=== PATIENT | male | born 1950 | race Caucasian/White ===

== ENCOUNTER 2019-07-03 06:56 | Observation (INO) | payer BC, OTHER ==
[2019-07-03] VITALS (13 sets, daily range): BP systolic 121–139; BP diastolic 66–76
[~2019-07-03] VITALS: Ht 172.7 cm; Wt 94.0 kg
[~2019-07-03 06:56] MED LIST: ADULT LOW DOSE81 MG PO; BENICAR HCT 401 EAC1 PO; BYSTOLIC10 MG PO; BYSTOLIC20 MG PO; CO Q-10100 MG PO; FENOFIBRATE160 MG PO; FISH OIL 1,0001 EAC5 PO; GLUCOPHAGE1000 MG PO; GLUCOSAMINE &1 EAC1 PO; HYDROCHLOROTHIA25 M1; LISINOPRIL40 MG PO; MULTIVITAMINS PO; NORVASC10 MG PO; PLAVIX 75 MG TA75 M1 PO; TOPROL XL50 MG PO; TRIBENZOR 40-11 EAC1 PO; VITAMIN D31000 UNI2 PO; VYTORIN 10-201 EACH PO
[2019-07-03 07:31] LABS: HEMATOCRIT 43.8 % (42.0-52.0); HEMOGLOBIN 15.1 gm/dL (14.0-18.0); MCH 30.4 pg (26.0-34.0); MCHC 34.5 g/dL (28.0-37.0); RBC 4.98 mil/uL (4.50-6.00); RDW 13.7 % (10.5-14.5); WBC 7.9 thou/uL (4.0-11.0)
[2019-07-03 07:44] LABS: CALCIUM 10.1 mg/dL (8.5-10.1); CREATININE 1.2 mg/dL (0.7-1.3)
[2019-07-03] MEDS ORDERED: EDARBI80 MG PO (08:01)
[2019-07-03] MEDS ORDERED: CHLORTHALIDONE25 MG PO (08:01)
[2019-07-03] MEDS ORDERED: JANUVIA100 MG PO (08:02)
[2019-07-03 08:07] LABS: PROTIME 10.9 Seconds (9.3-11.4)
--- NOTE | 2019-07-03 08:25 | EKG ---
[address] [address] [place] [address] ELECTROCARDIOGRAM REPORT Name: DAJA ADRIAN [id number] Admission: 07/03/19 Attend Phys: Guillermo Oneil MD, Discharge: Date of : 48 Report #: [id number] THIS REPORT FOR: //name// [facility] Test Date: 2019-07-03 Test Time: 07:33:37 Pat Name: DAJA ADRIAN Department: Room: Gender: Apartment Maintenance: James OLIVEIRA : 1950 Requested By: Guillermo Oneil Order Number: [id number] MD: Vishal Howard Measurements Intervals [place] Rate: 62 P: -12 MI: 152 QRS: 44 QRSD: 151 T: 20 QT: 396 QTc: 402 Interpretive Statements Sinus rhythm Right bundle branch block Compared to ECG 01/06/2000 06:35:12 Ventricular premature complex(es) no longer present ST (T wave) deviation no longer present Electronically Signed On 07-03-2019 8:24:41 CDT by Vishal Howard [email or web address] <ELECTRONICALLY SIGNED> By: Vishal Howard MD, [facility] 07/03/19 0824 0733 Vishal Howard MD, [facility] /EPI
--- NOTE | 2019-07-03 13:58 | NUR ---
1330-NI,RT PULLED LEFT GROIN SHEATH, PRESSURE MAINTAINED FOR 25 MINUTES. SOME OOZING AFTER 15 MINUTES. NO COMPLAINTS FROM PT, VSS THROUGHOUT HOLD. DRESSING PLACED OVER LEFT GROIN. POST SHEATH PULL INSTRUCTIONS REVIEWED WITH PT AND ALL QUESTIONS ANSWERED. URINAL GIVEN TO PT TO TRY AND URINATE.
--- NOTE | 2019-07-03 19:39 | NUR ---
ASSUMED CARE AT 1400, SHIFT ASSESSMENT AND ADMISISON DONE, POST CATH INTEVENTION ADDED AND VS DOCUMNETED PER INTERVENTION. CATH SITE IS CLEAN DRY INTACT, NO SIGNS OF HEMATOMA, SOFT TO PALPATE. BEDREST UNTIL 1999 HEMOSTASIS WAS OBTAINED AT 1400. WILL CONTINUE TO ASESS AND ASSIST WITH ADLs NEEDED.
[2019-07-04] VITALS: BP 149/82
[2019-07-04 04:19] VITALS: BP 144/61
[2019-07-04 05:16] LABS: HEMATOCRIT 44.6 % (42.0-52.0); HEMOGLOBIN 15.2 gm/dL (14.0-18.0); MCHC 34.1 g/dL (28.0-37.0); MCV 87.9 fL (80.0-100.0); RBC 5.08 mil/uL (4.50-6.00); RDW 13.6 % (10.5-14.5); WBC 11.3 thou/uL (4.0-11.0)
--- NOTE | 2019-07-04 05:21 | NUR ---
PATIENT CARES WAS ASSUMED AT 0330. PATIENT WAS SOUND A SLEEP . HOURLY ROUNDIN CONTINUED WILL PASS TO DAY SHIFT. PATIENT IS STABLE. HOURLY ROUNDING WAS DONE. PATIENTSLEEP MOST OF THIS SHIFT. THE BED IS IN A LOW AND LOCKED POSITION.
[2019-07-04 05:50] LABS: ANION GAP 10 mmol/L (7-16); BUN 14 mg/dL (7-18); CALCIUM 9.4 mg/dL (8.5-10.1); CHLORIDE 97 mmol/L (98-107); CO2 31 mmol/L (21-32); GLUCOSE 136 mg/dL (74-106); SGOT 23 U/L (15-37); SGPT 34 U/L (30-65); SODIUM 138 mmol/L (136-145); TOTAL BILIRUBIN 0.7 mg/dL (<0.1-1.0); TOTAL PROTEIN 7.7 g/dL (6.4-8.2); TROPONIN-I <0.06 ng/mL (<0.06)
[2019-07-04 07:15] VITALS: BP 143/72
[2019-07-04] MEDS ORDERED: GLUCOPHAGE1000 MG PO (07:40)
[2019-07-04] MEDS ORDERED: ASA5UEC PO (07:40)
[2019-07-04] MEDS ORDERED: LIPITOR40 MG PO (07:43)
[2019-07-04] MEDS ORDERED: CRESTOR20 MG PO (07:56)
[2019-07-04] MEDS ORDERED: ZETIA10 MG PO (07:56)
[2019-07-04 08:25] VITALS: BP 144/61
--- NOTE | 2019-07-04 08:40 | EKG ---
[address] [address] [facility] [email or web address] [address] ELECTROCARDIOGRAM REPORT Name: DAJA ADRIAN Room #: 218-[facility] M.R.#: [id number] Admission: 07/03/19 Attend Phys: Guillermo Oneil MD, Discharge: Date of : 48 Report #: [id number] THIS REPORT FOR: //name// [facility] Test Date: 2019-07-04 Test Time: 07:35:55 Pat Name: DAJA ADRIAN Department: Room: 218 Gender: M Insurance Clerk: HAILEY : 1950 Requested By: Guillermo Oneil Order Number: [id number] MD: Vishal Howard Measurements Intervals [place] Rate: 63 P: 51 RI: 181 QRS: 45 QRSD: 153 T: 19 QT: 406 QTc: 416 Interpretive Statements Sinus rhythm Right bundle branch block Compared to ECG 07/03/2019 07:33:37 No significant changes Electronically Signed On 07-04-2019 8:39:50 CDT by Vishal Howrad [email or web address] <ELECTRONICALLY SIGNED> By: Vishal Howard MD, [facility] 07/04/19 0839 4 Vishal Howard MD, [facility] /EPI
--- NOTE | 2019-07-04 10:41 | NUR ---
PT PIV DISCONTINUED, GROIN DRESSING REMOVED, SITE PULSATILE, SOFT, NO BLEEDING. TELEMETRY REMOVED. PT DISCHARGED VIA WC ACCOMPANIED BY FAMILY
--- NOTE | 2019-07-06 18:46 | CATHLAB ---
[facility] [address] [place] [address] INVASIVE PROCEDURE REPORT Name: DAJA ADRIAN Room #: 218-P [facility] IN ..#: [id number] Admission: 07/03/19 Attend Phys: Guillermo Oneil, Discharge: 07/04/19 Date of : 48 Date of Service: 07/06/19 1846 Report #: [id number] THIS REPORT FOR: //name// APPROVED REPORT Study performed: 07/03/2019 10:07:42 Patient Details Patient Status: Out-Patient Room #: The patient is a 68 year-old male Event Personnel Guillermo Oneil Cotton Ball Bagger, Tin Riley Interventional Radiologist, Tova Laird RN, Charo Snowden Monitor, Oh Doran RTR Scrub, George Miranda RTR Scrub, Kathryn Trejo RTR Monitor, Steven Gamboa RN hair spring cutter Performed Art Access - L femoral artery* 42733 Initial Mod Sed Same Phys/QHP Gr5y 711438 50735 Mod Sed Same Phys/QHP Ea 101239 Left Heart Cath Coronaries, Bypass Grafts 0323995 LHCCORCABG GALO Revasc Graft Single PDA C9604 SVGREVSING Hemostasis with Manual pressure Indication Chest pain Procedure Narrative The patient was brought electively to the Cardiac Catheterization Laboratory and was prepped and draped in a sterile manner. The Left Groin^ was infiltrated with 1% Lidocaine subcutaneous anesthesia. A PINNACLE 6FR Sheath #[id number] sheath was inserted into the LFA^. Coronary angiography was performed using coronary diagnostic catheters. The right coronary system was accessed and visualized with a JL 4 catheter. The left coronary system was accessed and visualized with a JR 4 catheter. The left ventricle was accessed and visualized with a Pigtail catheter. Left ventriculogram was performed in MENON projection. Hemostasis was obtained with manual pressure following sheath removal without any complications. The patient tolerated the procedure well and there were no complications associated with the procedure. Intraoperative Conscious Sedation Sedation start time: 10:00 Case end Time: 12:[address] [address] INVASIVE PROCEDURE REPORT Name: DAJA ADRIAN Room #: 218-P [facility]#: [id number] Admission: 07/03/19 Attend Phys: Guillermo Oneil, Discharge: 07/04/19 Date of : 48 Date of Service: 07/06/19 1846 Report #: [id number] Fentanyl 300 mcg Versed 6.0 mg Fluoro Time: 8.42 minutes Dose: DAP 88422.00 cGycm2 1518 mGy Contrast Type and Amount: Omnipaque 150 ml Hemodynamics The aortic pressure is 153/68 mmHg with a mean of 98 mmHg. The left ventricular pressure is 151/13 mmHg with a mean of mmHg. The left ventricular end diastolic pressure is 25 mmHg. PCI Technique Lesion Percutaneous coronary intervention was performed on the Prox Anastamosis. A LAUNCHER 6FR RCB #[id number] Guide Catheter was used to engage the ostium. BALLOON DILATION A Balloon catheter Sprinter OTW 2.5 x 12 #[id number] was inserted and inflated up to 10.00atm for 26seconds. Additional Inflation: 12.00atm for 21seconds. STENT DEPLOYMENT A drug-eluting stent XIENCE RIGOBERTO RX 2.5 X 12 #[id number] was inserted and inflated up to 14.00atm for 27seconds. Additional Inflation: 18.00atm for 30seconds. PCI Technique Lesion 2 Percutaneous Coronary Intervention was performed on the Popliteal. Conclusion #1 successful PTCA stent of the SVG to PDA anastomosis 90% lesion to 0% with a 2.5 x 12 Rigoberto drug-eluting stent postdilated 2.75 mm in size RAINE-3 grade 3 flow #2 the eklutna right coronary is occluded #3 left main moderately disease giving rise to an occluded LAD circumflex severely diseased competitively filling OM branch via vein graft #4 MITCHELL to LAD is intact brisk flow into the LAD anastomosis approximate mid vessel with retrograde filling of diagonal #5 SVG or radial graft to OM branch remains widely patent mild ostial disease is noted #6 normal left ventricular size and systolic function EF 55% Regulations plan: Continue aggressive risk factor modification will [facility] [address] [place] [address] INVASIVE PROCEDURE REPORT Name: DAJA ADRIAN Room #: 218-P [facility] M.R.#: [id number] Admission: 07/03/19 Attend Phys: Guillermo Oneil, Discharge: 07/04/19 Date of : 48 Date of Service: [id number] Report #: [id number] need dual antiplatelet therapy for coronary and peripheral intervention. See Dr. Riley's dictation. Patient transfer CCU in stable condition. <ELECTRONICALLY SIGNED> By: Guillermo Oneil MD, FACC 07/06/191845 45 45 Guillermo Oneil MD, FACC /INF
== END 2019-07-04 10:29 | disposition home or self-care (01) ==
LOC: CATH 06:56 → 2N 14:31
PROVIDERS: Nurse Practitioner Adult Health; ADMIT Internal Medicine Cardiovascular Disease
DX: I25.10 Atherosclerotic heart disease of native coronary artery without angina pectoris (principal); I73.9 Peripheral vascular disease, unspecified; I10 Essential (primary) hypertension; E11.9 Type 2 diabetes mellitus without complications; I65.29 Occlusion and stenosis of unspecified carotid artery; Z79.899 Other long term (current) drug therapy; Z79.82 Long term (current) use of aspirin

== ENCOUNTER → 2019-10-27 | Outpatient (CLI) | payer BC, OTHER ==
[~2019-10-27] VITALS: Ht 172.7 cm; Wt 93.0 kg
[2019-10-27] VITALS (10 sets, daily range): BP systolic 144–163; BP diastolic 67–79
[~2019-10-27] MED LIST changes: +AMBIEN 10 MG TA10 MG PO; +ASA5UEC PO; +CHLORTHALIDONE25 MG PO; +CRESTOR20 MG PO; +D3 DOTS2000 UNIT PO; +EDARBI80 MG PO; +FLOMAX0.4 MG PO; +GLUCOSAMINE H1500 MG PO; +JANUVIA100 MG PO; +LIPITOR40 MG PO; +VITAMIN B12-FO1 EAC1 PO; +ZETIA10 MG PO
== END | disposition home or self-care (01) ==
LOC: CATH 07:47
DX: I70.248 Atherosclerosis of native arteries of left leg with ulceration of other part of lower leg (principal); I70.1 Atherosclerosis of renal artery; L97.829 Non-pressure chronic ulcer of other part of left lower leg with unspecified severity; I10 Essential (primary) hypertension; I25.10 Atherosclerotic heart disease of native coronary artery without angina pectoris; E11.9 Type 2 diabetes mellitus without complications; M19.90 Unspecified osteoarthritis, unspecified site; Z98.890 Other specified postprocedural states; Z79.899 Other long term (current) drug therapy; Z87.891 Personal history of nicotine dependence; Z95.1 Presence of aortocoronary bypass graft; Z79.82 Long term (current) use of aspirin

== ENCOUNTER → 2020-08-22 | Outpatient (CLI) | payer OTHER | LOC: SJCVCIMAG 07:27 | PROVIDERS: ATTEND Internal Medicine Cardiovascular Disease | DX: I73.9 Peripheral vascular disease, unspecified (principal); M25.561 Pain in right knee; M79.605 Pain in left leg; E78.00 Pure hypercholesterolemia, unspecified; E11.9 Type 2 diabetes mellitus without complications; Z95.820 Peripheral vascular angioplasty status with implants and grafts; Z87.891 Personal history of nicotine dependence ==

== ENCOUNTER → 2020-08-27 | Outpatient (CLI) | payer OTHER | LOC: SJCVC 14:52 | PROVIDERS: ATTEND Nuclear Medicine Nuclear Cardiology | DX: I73.9 Peripheral vascular disease, unspecified (principal); I25.810 Atherosclerosis of coronary artery bypass graft(s) without angina pectoris; E11.9 Type 2 diabetes mellitus without complications; I10 Essential (primary) hypertension; E78.00 Pure hypercholesterolemia, unspecified; I77.9 Disorder of arteries and arterioles, unspecified; M19.90 Unspecified osteoarthritis, unspecified site; Z95.1 Presence of aortocoronary bypass graft; Z82.49 Family history of ischemic heart disease and other diseases of the circulatory system; Z87.891 Personal history of nicotine dependence; Z79.82 Long term (current) use of aspirin; Z79.899 Other long term (current) drug therapy ==

== ENCOUNTER → 2020-10-25 | Outpatient (CLI) | payer OTHER | LOC: SJCVCIMAG 07:45 | PROVIDERS: ATTEND Internal Medicine Cardiovascular Disease | DX: I45.10 Unspecified right bundle-branch block (principal); I49.3 Ventricular premature depolarization; R00.0 Tachycardia, unspecified; E78.5 Hyperlipidemia, unspecified; I10 Essential (primary) hypertension; E11.9 Type 2 diabetes mellitus without complications; I25.10 Atherosclerotic heart disease of native coronary artery without angina pectoris; Z79.899 Other long term (current) drug therapy ==

== ENCOUNTER → 2021-03-28 | Outpatient (CLI) | payer OTHER | LOC: SJCVCIMAG 11:15 | PROVIDERS: ATTEND Internal Medicine Cardiovascular Disease | DX: I65.23 Occlusion and stenosis of bilateral carotid arteries (principal); I70.203 Unspecified atherosclerosis of native arteries of extremities, bilateral legs; M71.22 Synovial cyst of popliteal space [Baker], left knee; I77.9 Disorder of arteries and arterioles, unspecified; Z95.828 Presence of other vascular implants and grafts; Z79.82 Long term (current) use of aspirin; Z79.899 Other long term (current) drug therapy; Z87.891 Personal history of nicotine dependence ==

== ENCOUNTER → 2021-04-01 | Outpatient (CLI) | payer OTHER ==
[~2021-04-01] MED LIST changes: +ASA81BEC PO
== END ==
LOC: SJCVC 13:50
PROVIDERS: ATTEND Internal Medicine Cardiovascular Disease
DX: R94.31 Abnormal electrocardiogram [ECG] [EKG] (principal); I45.10 Unspecified right bundle-branch block; I25.118 Atherosclerotic heart disease of native coronary artery with other forms of angina pectoris; I73.9 Peripheral vascular disease, unspecified; R06.00 Dyspnea, unspecified; R07.89 Other chest pain; E78.00 Pure hypercholesterolemia, unspecified; I77.9 Disorder of arteries and arterioles, unspecified; I10 Essential (primary) hypertension; M19.90 Unspecified osteoarthritis, unspecified site; E11.9 Type 2 diabetes mellitus without complications; Z98.890 Other specified postprocedural states; Z95.1 Presence of aortocoronary bypass graft; Z79.82 Long term (current) use of aspirin; Z79.84 Long term (current) use of oral hypoglycemic drugs; Z79.899 Other long term (current) drug therapy; Z87.891 Personal history of nicotine dependence; Z82.49 Family history of ischemic heart disease and other diseases of the circulatory system

== ENCOUNTER → 2021-04-07 | Outpatient (CLI) | payer OTHER ==
[~2021-04-07] VITALS: Ht 172.7 cm; Wt 93.0 kg
[2021-04-07 08:26] VITALS: BP 161/76
[2021-04-07 08:50] LABS: HEMATOCRIT 42.4 % (42.0-52.0); HEMOGLOBIN 14.1 gm/dL (14.0-18.0); MCH 29.5 pg (26.0-34.0); MCHC 33.3 g/dL (28.0-37.0); MCV 88.4 fL (80.0-100.0); RBC 4.8 mil/uL (4.50-6.00); RDW 13.7 % (10.5-14.5); WBC 7.2 thou/uL (4.0-11.0)
[2021-04-07 08:55] LABS: CALCIUM 9.1 mg/dL (8.5-10.1); CREATININE 1.2 mg/dL (0.7-1.3); POTASSIUM 4.6 mmol/L (3.5-5.1)
--- NOTE | 2021-04-07 17:26 | CATHLAB ---
[facility] [place] [address] INVASIVE PROCEDURE REPORT Name: DAJA ADRIAN Room #: REG [facility].#: [id number] Admission: 04/07/21 Attend Phys: Tin Riley MD Discharge: Date of : 48 Report #: [id number] THIS REPORT FOR: cc: Sophia Bowens MD, Jennifer S. MD Mancuso, Gerald M. MD [facility] ~ APPROVED REPORT Study performed: 04/07/2021 12:04:19 Patient Details Patient Status: Out-Patient Room #: The patient is a 70 year-old male Event Personnel Poly Barroso Lock, Alison RT(R)() Monitor, Natalya Thomason RN RN, Guillermo Oneil Delivery Agent Procedures Performed Left Heart Cath Coronaries, Bypass Grafts [id number] CCORCA 82308 Initial Mod Sed Same Phys/QHP [facility] 690641 15694 Mod Sed Same Phys/QHP Ea 195880 Procedure Narrative A SHEATH BRITE-TIP 6F X 11CM ([id number]) sheath was inserted into the LFA 5F^. Coronary angiography was performed using coronary diagnostic catheters. The right coronary system was accessed and visualized with a JR4 catheter. The left coronary system was accessed and visualized with a JL4 catheter. The left ventricle was accessed and visualized with a PIGTAIL catheter. The patient tolerated the procedure well and there were no complications associated with the procedure. There was no hematoma. MITCHELL TO LAD, RADIAL TO OM, SVG TO PDA Intraoperative Conscious Sedation Fentanyl 200 mcg Versed 2 mg Fluoro Time: 17.00 minutes Dose: DAP 35203.40 cGycm2 Contrast Type and Amount: Omnipaque 100 ml Hemodynamics The aortic pressure is 129/56 mmHg with a mean of 81 mmHg. The left ventricular pressure is 122/10 mmHg with a mean of mmHg. The left ventricular end diastolic pressure is 23 mmHg. [facility] [email or web address] [place] [address] INVASIVE PROCEDURE REPORT Name: DAJA ADRIAN Room #: REG [facility]#: [id number] Admission: 04/07/21 Attend Phys: Tin Riley, Discharge: Date of : 48 Report #: [id number] PCI Technique Lesion Percutaneous coronary intervention was performed on the Superficial Femoral. Conclusion #1. Normal left ventricular size and systolic function EF 60%. #2 left main mild distal tapered narrowing giving rise to an occluded LAD and a diffusely diseased circumflex system second OM branch is patent and appears to be competitively filling with a high-grade lesion proximal. #3 a MITCHELL is intact with mild irregularities filling a LAD and retrograde filling of a diagonal system. Diffusely diseased LAD system #4 radial graft is filling in OM system and retrograde filling the diffusely diseased circumflex. #5 dominant right coronary occluded #6 SVG to PDA is intact filling the PDA and PERLITA system with mild irregularity. Recommendations and plan: Continue aggressive risk factor modification no indication for coronary intervention. <ELECTRONICALLY SIGNED> By: Guillermo Oneil MD, [facility] 04/07/211725 25 25 Guillermo Oneil MD, FACC /INF
== END | disposition home or self-care (01) ==
LOC: CATH 07:52
PROVIDERS: ATTEND Nuclear Medicine Nuclear Cardiology
DX: I25.810 Atherosclerosis of coronary artery bypass graft(s) without angina pectoris (principal); I70.211 Atherosclerosis of native arteries of extremities with intermittent claudication, right leg; I70.1 Atherosclerosis of renal artery; M79.604 Pain in right leg; I10 Essential (primary) hypertension; E11.9 Type 2 diabetes mellitus without complications; E78.00 Pure hypercholesterolemia, unspecified; M19.90 Unspecified osteoarthritis, unspecified site; K21.9 Gastro-esophageal reflux disease without esophagitis; Z98.890 Other specified postprocedural states; Z79.899 Other long term (current) drug therapy; Z82.49 Family history of ischemic heart disease and other diseases of the circulatory system; Z95.1 Presence of aortocoronary bypass graft

== ENCOUNTER → 2021-06-23 | Outpatient (CLI) | payer OTHER, MEDICARE ==
[~2021-06-23] MED LIST changes: +GLUMETZA1000 PO; +METOPROLOL TART25 MG PO; +PRILOSEC OTC20 MG PO; +VITAMIN D31250 MCG PO
[2021-06-23 09:18] LABS: URINE BILIRUBIN NEGATIVE (Negative); URINE BLOOD NEGATIVE (Negative); URINE CLARITY CLEAR; URINE COLOR YELLOW; URINE GLUCOSE-RANDOM* NEGATIVE (Negative); URINE KETONES NEGATIVE (Negative); URINE LEUKOCYTES-REFLEX NEGATIVE (Negative); URINE NITRITE-REFLEX NEGATIVE (Negative); URINE PROTEIN (DIPSTICK) NEGATIVE (Negative); URINE UROBILINOGEN 0.2 E.U./dl (0.2-1.0)
[2021-06-23 09:19] LABS: HEMATOCRIT 41.3 % (42.0-52.0); MCH 29.3 pg (26.0-34.0); MCHC 33.8 g/dL (28.0-37.0); MCV 86.8 fL (80.0-100.0); RBC 4.77 mil/uL (4.50-6.00); RDW 13.3 % (10.5-14.5); WBC 8.5 thou/uL (4.0-11.0)
[2021-06-23 09:32] LABS: ALBUMIN 4.1 g/dL (3.4-5.0); CALCIUM 9.2 mg/dL (8.5-10.1); CREATININE 1.2 mg/dL (0.7-1.3); POTASSIUM 4.2 mmol/L (3.5-5.1)
[2021-06-23 09:34] LABS: INR 1.08; PROTIME 11.7 Seconds (10.5-12.1)
[2021-06-24 02:06] LABS: GLYCOHEMOGLOBIN (HGB A1C) 7.2 % (4.8-5.6)
== END ==
LOC: PAC 08:11
PROVIDERS: ATTEND Orthopaedic Surgery
DX: Z01.812 Encounter for preprocedural laboratory examination (principal); M17.11 Unilateral primary osteoarthritis, right knee; Z91.048 Other nonmedicinal substance allergy status

== ENCOUNTER 2021-07-14 11:23 | Observation (INO) | payer OTHER, MEDICARE ==
[~2021-07-14] VITALS: Ht 172.7 cm; Wt 93.7 kg
[2021-07-14 12:31] VITALS: BP 173/87
[2021-07-14 19:58] VITALS: BP 140/79
--- NOTE | 2021-07-15 02:50 | NUR ---
ADMISSION ASSESSMENT COMPLETED. PT IS ALERT AND ORIENTED. PLEASNT AND COOPEARATIVE. RIGHT KNEE WITH POLAR YUE AND TEDS IN PLACE. PT REPORTS SOME SORENESS AROUND THE ANKLE. WAS ABLE TO SIT BY BEDSIDE AND DANGLE.USING URINAL. APPEARS TO BE RESTING QUIETLY. CALLS WITH NEEDS.
[2021-07-15 07:22] VITALS: BP 164/81
[2021-07-15 09:00] VITALS: BP 164/81
[2021-07-15 10:21] VITALS: BP 164/81
[2021-07-15 11:21] VITALS: BP 164/81
--- NOTE | 2021-07-15 11:34 | NUR ---
ASSESSMENT: CM REVIEWED CHART AND SPOKE WITH PATIENT AT THE BEDSIDE. PT IS S/P RIGHT TKA. PT REPORTS THAT HE LIVES IN A RANCH STYLE HOME ALONE. PT REPORTS ONE STEP ENTERING THROUGH THE FRONT AND IF HE GOES TO THE BACK HE WOULD HAVE NO STEPS. PT REPORTS THAT HE HAS A WALKER AT HOME TO ASSIST WITH AMBULATION. PT DENIES HAVING A GRAB BAR OR SHOWER CHAIR. CM DISCUSSED WITH PATIENT THAT A SHOWER BENCH IS NOT COVERED WITH MEDICARE INSURANCE AND PT WOULD HAVE TO PRIVATELY PAY FOR ONE. (CM EDUCATED PT CAN FIND ONE A [employer], [employer], OR EVEN ORDER OFF [employer] OR ANY [employer] STORE). PT REPORTS WANTING HH AT DISCHARGE AND HAS NO PREFERENCE OF HH AGENCY. CM SENT REFERRAL TO [facility] AND NOTIFIED LIAS[facility] AT [facility] AND OF DISCHARGE TODAY. CM ALSO FAXED DISCHARGE PAPERWORK TO [facility]. PT IS DISCHARGING HOME TODAY.
--- NOTE | 2021-07-15 11:46 | NUR ---
PT RESTING COMFORTABLY WITH COLD WRAP OVER KNEE. ALL WEIGHT BARING PRECAUTIONS INPLACE. PT AFEBRILE, ADEQUATE UOP,NO BM, APPROPRIATE APPETITE. RAO DRESSING IN PLACE. PT TO DC AT 1150. PT HAS BEEN THOUROUGHLY UPDATED AND EDUCATED ON PT CONDITION AND POC. PT PROGRESSED TOWARDS POC.
--- NOTE | 2021-07-17 07:30 | O ---
[facility] [place] [place] [address] OPERATIVE REPORT Name: DAJA ADRIAN Room #: 446-P [facility] [place]#: [id number] Admission: 07/14/21 Attend Phys: Kane De La Torre MD Discharge: 07/15/21 Date of : 48 Report #: [id number] THIS REPORT FOR: cc: Sophia Bowens MD, Jennifer S. MD Abraham,Kane Ayala MD ~ DATE OF SERVICE: 07/14/2021 PREOPERATIVE DIAGNOSIS: Right knee osteoarthritis. POSTOPERATIVE DIAGNOSIS: Right knee osteoarthritis. PROCEDURE: Right total knee arthroplasty using Navio robotic assistance. SURGEON: Kane De La Torre MD HOUSEKEEPING SUPERVISOR: Adrianne Breaux PA-C INDICATION FOR HOUSEKEEPING SUPERVISOR: Throughout the case, extensive retraction, manipulation of the knee was required. This is supported by my retail loan originator assistant. ANESTHESIA: LMA with adductor canal block. IMPLANTS: Sams and Nephew size 6 Journey II BCS cobalt chrome femur, a size 5 tibia, size 9 constrained polyethylene and size 35 patella. TOURNIQUET TIME: 54 minutes. ESTIMATED BLOOD LOSS: 25 mL. COMPLICATIONS: None. SPECIMENS: None. CONDITION UPON LEAVING THE OR: Stable. INDICATIONS FOR PROCEDURE: The patient is a 70-year-old gentleman with a right knee valgus osteoarthritis. He had failed conservative measures for this and after discussion with him, he elected for right total knee arthroplasty. DESCRIPTION OF PROCEDURE: Risks, benefits, alternatives, and complications were discussed in detail with the patient including but not limited to risk of anesthesia, risk of damage to nerves, arteries, blood vessels, risk for infection, bleeding, DVT, PE, and need for reoperation. Informed consent was obtained from the patient. The right knee was appropriately marked in the preoperative holding area. IV Ancef was given for preoperative antibiotics. He [address] [address] OPERATIVE REPORT Name: DAJA ADRIAN Room #: 446-P [facility] [place]am [place]#: [id number] Admission: 07/14/21 Attend Phys: Kane De La Torre MD Discharge: 07/15/21 Date of : 48 Report #: [id number] was brought to the operating room and placed in the supine position on the operating table. LMA anesthesia was induced without complication. Tourniquet was placed on the right thigh. Right lower extremity was prepped and draped in normal sterile fashion. Timeout was performed properly identifying the patient and procedure as well as instrumentation and implants. All in the operating room in agreement. Right lower extremity was exsanguinated and tourniquet inflated. Tourniquet time was 54 minutes. Standard midline approach to the knee was made with 10 blade through the skin. Dissection was taken down sharply to the fascia. Deep flaps were developed medially and laterally. Fresh 10 blade was used to make a medial parapatellar arthrotomy and the knee was inspected. There was severe lateral compartment osteoarthritis with moderate medial and patellofemoral osteoarthritis. ACL and PCL were removed sharply. Reference pins were placed in the femur and the tibia. The knee was then digitally mapped using the [employer] robotic system. Intraoperative plan was made. We sized the size 6 femur, size 5 tibia and a 10 spacer after acceptance of the intraoperative plan. The distal femoral cut was made with Navio bur. Distal femoral cutting block was pinned in place and chamfer cuts were made. Attention was turned to the tibia. Remainder of the menisci removed with Bovie cautery. Tibial resection guide was pinned in place using Navio for placement and tibial resection was made. Flexion and extension gaps were checked and found to have good balance laterally in flexion and extension. Medially, he was somewhat lax at the end, this was not surprising given his valgus deformity, it was felt we can make up for this with a constrained implant. Tibia sized found to be a size 5. A size 5 tibial trial was placed, pinned and punch. A size 6 femoral trial was placed, box cut was made. This was then trialed with a size 9 polyethylene. Size 9 polyethylene demonstrated 1-2 mm of laxity laterally throughout range of motion of the knee with up to 3 mm medially. Again, it was felt we can make up for this with a constrained implant, 9 mm of bone was resected from the posterior surface of the patella and a size 35 patellar trial button was placed. Knee was taken through range of motion, found to be stable, found to have good patellar tracking. Trial components were removed. Bone ends were thoroughly irrigated with normal saline. Final size 5, tibia size 6 Journey II BCS cobalt chrome femur and a size 35 patella were cemented in place using standard cementation techniques. While the cement cured, a periarticular injection consisting of morphine, ropivacaine, epinephrine, Toradol was placed around the knee joint capsule. After the cement cured, tourniquet was deflated. Hemostasis was obtained with Bovie cautery. A final size 9 constrained polyethylene was placed. A gram of vancomycin was placed deep in the joint. Fascia was closed with 0 Vicryl. Skin was closed with 2-0 Vicryl. Skin staple and a RAO dressing was applied. The patient tolerated this procedure well and went to recovery room under care of anesthesia postoperatively. <ELECTRONICALLY SIGNED> By: Kane De La Torre MD 07/17/21 7041 1522 1920 Kane De La Torre MD /ave
== END 2021-07-15 11:50 | disposition home health service (06) ==
LOC: OR → 4S 17:53
PROVIDERS: ADMIT Orthopaedic Surgery; ATTEND Orthopaedic Surgery
DX: M17.11 Unilateral primary osteoarthritis, right knee (principal); Z20.822 Contact with and (suspected) exposure to COVID-19; I25.10 Atherosclerotic heart disease of native coronary artery without angina pectoris; I73.9 Peripheral vascular disease, unspecified; Z79.02 Long term (current) use of antithrombotics/antiplatelets; Z79.82 Long term (current) use of aspirin; Z79.899 Other long term (current) drug therapy; Z79.84 Long term (current) use of oral hypoglycemic drugs
CPT/HCPCS: 50010; 50101; 50415; 50954; 51130; 51225; 51320; 52001; 52282; 53000; 53078; 56527; 56528; 57095; 57103; 57110; 57127; 57180; 58239; 62110; 62900; 70005

== ENCOUNTER 2021-08-01 11:37 | Inpatient (IN) | payer OTHER, MEDICARE ==
[2021-08-01] VITALS (23 sets, daily range): BP systolic 139–187; BP diastolic 73–101
[~2021-08-01] VITALS: Ht 172.7 cm; Wt 90.8 kg
[2021-08-01 13:50] LABS: HEMATOCRIT 36.4 % (42.0-52.0); HEMOGLOBIN 11.7 gm/dL (14.0-18.0); MCH 27.7 pg (26.0-34.0); MCHC 32.1 g/dL (28.0-37.0); MCV 86.3 fL (80.0-100.0); RBC 4.22 mil/uL (4.50-6.00); WBC 11.9 thou/uL (4.0-11.0)
[2021-08-01 14:01] LABS: CALCIUM 9.4 mg/dL (8.5-10.1); CREATININE 1.5 mg/dL (0.7-1.3); POTASSIUM 4.1 mmol/L (3.5-5.1)
--- NOTE | 2021-08-01 19:33 | NUR ---
70 YEAR OLD MALE ADMITTED TO ICU ROOM 249 AT 1640 FROM INTERVENTIONAL RADIOLOGY WITH STENOSIS AND OCCLUSION TO STENT IN RT LEG. SHEATH IN LEFT GROIN WITHOUT HEMATOMA. PLACED ON CARDIAC, O2 SAT AND BP MONITORS. TPA AND INTERILIN INFUSING VIA LEFT GROIN SHEATH.
--- NOTE | 2021-08-01 20:24 | NUR ---
PATIENT IS PROGRESSING SLOWLY TOWARDS OUTCOME GOALS. PAIN ADDRESSED WITH SOME RELIEF.
[2021-08-02] VITALS (32 sets, daily range): BP systolic 120–168; BP diastolic 54–88
[2021-08-02 04:21] LABS: HEMOGLOBIN 11.6 gm/dL (14.0-18.0); MCH 28.4 pg (26.0-34.0); MCHC 33.3 g/dL (28.0-37.0); MCV 85.5 fL (80.0-100.0); RBC 4.09 mil/uL (4.50-6.00); RDW 13.9 % (10.5-14.5); WBC 9.5 thou/uL (4.0-11.0)
[2021-08-02 04:45] LABS: CALCIUM 8.8 mg/dL (8.5-10.1); POTASSIUM 3.8 mmol/L (3.5-5.1)
--- NOTE | 2021-08-02 10:44 | NUR ---
Patient left unit with pathology laboratory aides teacher RN at 1040. Vital signs stable and no complaints of pain when patient left unit.
--- NOTE | 2021-08-02 12:37 | NUR ---
Patient returned to ICU at 1225 Groin site checked with rd lab technician RN, no hematoma or bleeding at this time. Left DP pulses with doppler. Vital signs stable
--- NOTE | 2021-08-02 16:19 | NUR ---
Report called to CCU CARLOS Saleem. Patient will be transfering to room 210
--- NOTE | 2021-08-02 16:59 | NUR ---
Patient moved to room 210, this RN and patient RN on CCU assessed left groin site and pulses together. Stable vital signs. No complaints of pain. Patients walker, hearing aid, clothes, and phone at bedside.
[2021-08-03 04:04] VITALS: BP 172/88
--- NOTE | 2021-08-03 05:09 | NUR ---
RECEIVED THE PATIENT ON BED, CONSCIOUS AND ORIENTED.ON ROOM AIR BREATHING SPONTANEOUSLY.WITH LEFT GROIN SITE COEVRED WITH 2 DRESSINGS,DRESSING 1 IS C/D/I, DRESSING 2 IS WITH DRY OLD BLOOD IN IT.LEFT GROIN SITE IS INTACT, NO HEMATOMA NOTED FROM THE SITE.WITH POST RIGHT KNEES SURGERY SITE INTACT..PULESES ARE PRESENT ON BOTH LOWER EXTREMETIES.ALL NEEDS ATTENDED.PAIN MANAGEMENT OBSERVED THROUGHOUT THE SHIFT.
[2021-08-03 06:30] VITALS: BP 159/68
[2021-08-03 08:05] VITALS: BP 165/80
[2021-08-03] MEDS ORDERED: HYDROCODON-ACE1 EAC7 PO (10:11)
[2021-08-03] MEDS ORDERED: METOPROLOL TART25 MG PO (11:19)
[2021-08-03 11:35] VITALS: BP 152/71
[2021-08-03 12:37] VITALS: BP 165/80
--- NOTE | 2021-08-03 13:16 | NUR ---
DISCHARGE TEACHING COMPLETED, NO QUESTIONS OR CONCERNS AT TIME OF EDUCATION. IV AND TELE REMOVED. WILL BE TAKEN OUT IN WHEELCHAIR BY STAFF TO PRIVATE VEHICLE
== END 2021-08-03 17:10 | disposition home or self-care (01) | DRG 252 ==
LOC: SJCVCIMAG 11:37 → CATH 11:37 → SJCVC 11:37 → ICU 16:58 → 2N 19:35
PROVIDERS: ADMIT Hospitalist; ATTEND Nuclear Medicine Nuclear Cardiology
DX: E11.51 Type 2 diabetes mellitus with diabetic peripheral angiopathy without gangrene (principal); R65.11 Systemic inflammatory response syndrome (SIRS) of non-infectious origin with acute organ dysfunction; N17.0 Acute kidney failure with tubular necrosis; Z20.822 Contact with and (suspected) exposure to COVID-19; I25.10 Atherosclerotic heart disease of native coronary artery without angina pectoris; I10 Essential (primary) hypertension; M19.90 Unspecified osteoarthritis, unspecified site; I65.29 Occlusion and stenosis of unspecified carotid artery; I70.229 Atherosclerosis of native arteries of extremities with rest pain, unspecified extremity; E78.5 Hyperlipidemia, unspecified; Z87.891 Personal history of nicotine dependence; Z98.890 Other specified postprocedural states; Z95.1 Presence of aortocoronary bypass graft; Z90.49 Acquired absence of other specified parts of digestive tract; Z95.5 Presence of coronary angioplasty implant and graft
CPT/HCPCS: 10078; 10081

== ENCOUNTER → 2021-08-21 | Outpatient (CLI) | payer OTHER, MEDICARE ==
[~2021-08-21] MED LIST changes: +HYDROCODON-ACE1 EAC7 PO
== END ==
LOC: SJCVCIMAG 09:50
PROVIDERS: ATTEND Nuclear Medicine Nuclear Cardiology
DX: I73.9 Peripheral vascular disease, unspecified (principal); M79.605 Pain in left leg; M79.604 Pain in right leg; I25.10 Atherosclerotic heart disease of native coronary artery without angina pectoris; E11.9 Type 2 diabetes mellitus without complications; I10 Essential (primary) hypertension; Z95.1 Presence of aortocoronary bypass graft; Z87.891 Personal history of nicotine dependence; Z72.89 Other problems related to lifestyle; Z79.82 Long term (current) use of aspirin; Z79.84 Long term (current) use of oral hypoglycemic drugs; Z79.899 Other long term (current) drug therapy

== ENCOUNTER → 2021-08-27 | Outpatient (CLI) | payer OTHER, MEDICARE | LOC: SJCVC 13:49 | PROVIDERS: ATTEND Nuclear Medicine Nuclear Cardiology | DX: I73.9 Peripheral vascular disease, unspecified (principal); I77.9 Disorder of arteries and arterioles, unspecified; I25.10 Atherosclerotic heart disease of native coronary artery without angina pectoris; I10 Essential (primary) hypertension; E11.9 Type 2 diabetes mellitus without complications; E78.00 Pure hypercholesterolemia, unspecified; Z87.891 Personal history of nicotine dependence; Z72.89 Other problems related to lifestyle; Z79.82 Long term (current) use of aspirin; Z79.899 Other long term (current) drug therapy ==

== ENCOUNTER → 2022-01-14 | Outpatient (CLI) | payer OTHER, MEDICARE | LOC: SJCVCIMAG 13:05 | PROVIDERS: ATTEND Nuclear Medicine Nuclear Cardiology | DX: I73.9 Peripheral vascular disease, unspecified (principal); I77.9 Disorder of arteries and arterioles, unspecified; I25.10 Atherosclerotic heart disease of native coronary artery without angina pectoris; I10 Essential (primary) hypertension; E78.00 Pure hypercholesterolemia, unspecified; E11.9 Type 2 diabetes mellitus without complications; F10.20 Alcohol dependence, uncomplicated; Z87.891 Personal history of nicotine dependence; Z98.890 Other specified postprocedural states; Z95.1 Presence of aortocoronary bypass graft; Z79.82 Long term (current) use of aspirin; Z79.84 Long term (current) use of oral hypoglycemic drugs; Z79.899 Other long term (current) drug therapy ==